=== PATIENT | female | born 1995 | race Caucasian/White ===

== ENCOUNTER 2020-05-09 05:42 | Inpatient (IN) ==
[2020-05-09] MEDS ORDERED: ONDANSETRON 4 MG/2 ML VIAL IV PRN ×2 (06:26→22:12)
[2020-05-09] MEDS ORDERED: LACTATED RINGERS 1,000 ML IV ONE ×2 (06:26→15:36)
[2020-05-09] MEDS ORDERED: LACTATED RINGERS 500 ML IV PRN (06:26)
[2020-05-09] MEDS ORDERED: LACTATED RINGERS 1,000 ML IV SCH ×4 (06:30→22:30)
[2020-05-09 06:49] LABS: Basophils % 0.2 % (0.0-0.8); Eosinophils % 0.3 % (0.00-10.9); Hematocrit 37.9 VOL% (35.7-47.0); Hemoglobin 12.8 GM/DL (12.0-16.0); Immature Granulocytes % 0.4 %; Immature Granulocytes Absolute 0.05 #; Lymphocytes # 2.4 10*3/uL (1.4-4.0); Lymphocytes % 19.5 % (21.3-54.2); Mean Corpuscular HGB Conc 33.8 GM/DL (32-36); Neutrophils % 74.6 % (38.7-73.9); Platelet Count 256 T/CUMM (130-400); Red Blood Count 4.12 MC/CUMM (3.8-5.5); Red Cell Distribution Width 12.9 % (9.3-17.3); White Blood Count 12.4 T/CUMM (4-12)
[2020-05-09 07:15] LABS: Alanine Aminotransferase 13 U/L (13-56); Albumin 2.3 G/DL (3.4-5.0); Alkaline Phosphatase 135 U/L (45-117); Aspartate Amino Transferase 13 U/L (0-37); Bilirubin,Total < 0.39 MG/DL (0.2-1.0); Blood Urea Nitrogen 10 MG/DL (7-18); Calcium 8.6 MG/DL (8.5-10.1); Estimated Glom Filtration Rate 158 ML/MIN; Glucose 95 MG/DL (74-106); Osmolality,Calculated 273.7 MOS/KG (273-304); Total Protein 6.2 G/DL (6.4-8.3)
[2020-05-09] MEDS ORDERED: OXYTOCIN/LR 20 UNIT/1,000 ML BAG IV SCH (07:30)
[2020-05-09 08:47] LABS: Hepatitis B Surface Ag Quant < 0.10 Index; Hepatitis B Surface Ag Result Negative (Negative)
[2020-05-09 13:52] LABS: HIV Antigen/Antibody Result Nonreactive (Nonreactive)
[2020-05-09] MEDS ORDERED: BUTORPHANOL 2 MG/ML VIAL IV PRN (15:25)
[2020-05-09] MEDS ORDERED: ePHEDrine 50 MG/ML VIAL IV PRN (15:36)
[2020-05-09] MEDS ORDERED: CITRIC ACID/SODIUM CITRATE 30 ML UDCUP PO ONE ×2 (15:36→21:20)
[2020-05-09] MEDS ORDERED: FAMOTIDINE 20 MG/2 ML VIAL IV ONE ×2 (15:36→21:20)
[2020-05-09] MEDS ORDERED: NALOXONE 0.4 MG/ML VIAL IV PRN (15:37)
[2020-05-09] MEDS ORDERED: hydrOXYzine HCL 25 MG/1 ML VIAL IM PRN (15:37)
[2020-05-09] MEDS ORDERED: diphenhydrAMINE 50 MG/1 ML VIAL IV PRN ×2 (15:37)
[2020-05-09] MEDS ORDERED: PROMETHAZINE 25 MG/1 ML VIAL IM ONE (15:37)
[2020-05-09] MEDS ORDERED: fentaNYL 2 MCG/ROPIV 0.2% EPID 100 ML EPIDURAL SCH (16:00)
[2020-05-09 17:18] LABS: Bilirubin,Urine Negative (Negative); Blood, Urine Negative (Negative); Glucose,Urine (UA) Negative (Negative); Ketones,Urine 80 mg/dL (Negative); Mucus,Urine Occasional /LPF (Occasional); Nitrite,Urine Negative (Negative); Protein,Urine Negative; RBC,Urine 1 /HPF (0-4); Squamous Epithelial Cell,Urine Occasional /HPF (0-10); Urine Appearance CLEAR (Clear); Urine Color Yellow (Yellow); Urine Specific Gravity 1.021 (1.001-1.035); WBC,Urine 1 /HPF (0-6)
[2020-05-09] MEDS ORDERED: TERBUTALINE 1 MG/1 ML VIAL ONE (21:06)
[2020-05-09] MEDS ORDERED: ceFAZolin 2,000 MG in PREMIX 1 EACH IV ONE (21:30)
[2020-05-09] MEDS ORDERED: OXYTOCIN/LR 20 UNIT/1,000 ML BAG IV ONE ×2 (21:39→22:12)
[2020-05-09] MEDS ORDERED: METHYLERGONOVINE 0.2 MG/1 ML AMP ONE (21:40)
[2020-05-09] MEDS ORDERED: CARBOPROST TROMETHAMINE 250 MCG/ML AMP IM ONE (21:40)
[2020-05-09 21:59] LABS: Cord Arterial Blood HCO3 14.5 MMOL/L
[2020-05-09 22:02] LABS: Cord Venous Blood HCO3 15.7 MMOL/L
[2020-05-09 22:09] LABS: Cord Venous Blood PO2 15.3
[2020-05-09] MEDS ORDERED: RHO(D) IMMUNE GLOBULIN 300 MCG SYRINGE IM ONE (22:12)
[2020-05-09] MEDS ORDERED: ACETAMINOPHEN 325 MG TABLET PO PRN (22:12)
[2020-05-09] MEDS ORDERED: SIMETHICONE CHEW 80 MG TABLET PO PRN (22:12)
[2020-05-09] MEDS ORDERED: LIDOCAINE MPF 2% /EPI 20 ML VIAL ONE (22:26)
[2020-05-09] MEDS ORDERED: MORPHINE 10 MG/10 ML VIAL ONE (22:27)
[2020-05-10 06:35] LABS: Basophils % 0.2 % (0.0-0.8); Hematocrit 35.3 VOL% (35.7-47.0); Hemoglobin 11.6 GM/DL (12.0-16.0); Immature Granulocytes % 0.7 %; Immature Granulocytes Absolute 0.13 #; Lymphocytes % 11.2 % (21.3-54.2); Mean Corpuscular HGB Conc 32.9 GM/DL (32-36); Mean Corpuscular Volume 94.6 FL (87-102); Mean Platelet Volume 9.7 FL (9.6-12.0); Monocytes % 4.4 % (1.7-12.7); Neutrophils % 83.5 % (38.7-73.9); Platelet Count 256 T/CUMM (130-400); Red Blood Count 3.73 MC/CUMM (3.8-5.5); Red Cell Distribution Width 12.8 % (9.3-17.3)
[2020-05-10] MEDS ORDERED: SODIUM CHLORIDE 0.9% 100 ML IV ONE (06:47)
[2020-05-10] MEDS: ceFAZolin 1,000 MG in SYRINGE 1 EACH IV SCH ×2 (06:50→13:56)
[2020-05-10] MEDS: DOCUSATE SODIUM 100 MG CAPSULE PO SCH ×2 (08:58→20:40)
[2020-05-10] MEDS ORDERED: MULTIVITAMIN (PRENATAL) TABLET PO SCH (09:00)
[2020-05-10] MEDS: IBUPROFEN 800 MG TABLET PO PRN ×2 (11:08→19:47)
[2020-05-10] MEDS: oxyCODONE/ACETAMINOPHEN 5-325 MG TABLET PO PRN ×2 (11:09→19:47)
[2020-05-10] MEDS: MAGNESIUM HYDROXIDE SUSP 30 ML UDCUP PO PRN ×2 (15:53→20:40)
[2020-05-11] MEDS: IBUPROFEN 800 MG TABLET PO PRN (04:14)
[2020-05-11] MEDS: oxyCODONE/ACETAMINOPHEN 5-325 MG TABLET PO PRN (04:15)
[2020-05-11 08:53] VITALS: BP 108/48
== END 2020-05-11 12:40 | disposition home or self-care (01) | DRG 788 ==
LOC: N.LDOUT 05:42 → N.LD 05:44 → N.OB 05-10 01:15
PROVIDERS: ADMIT Obstetrics & Gynecology; ATTEND Obstetrics & Gynecology
PROC: LDCSECT (ICD-10-PCS; 2020-05-09 21:30)